=== PATIENT | male | born 1995 | race Caucasian/White ===

== ENCOUNTER 2016-05-15 13:51 | Emergency (ER) | payer OTHER ==
[~2016-05-15] VITALS: Ht 182.9 cm; Wt 70.7 kg
[2016-05-15] MEDS ORDERED: SODIUM CHLORIDE 0.9% 1,000 ML IV ONE (15:08)
[2016-05-15 15:26] LABS: HEMOGLOBIN 15.3 g/dL (13.7-18.0)
[2016-05-15] MEDS ORDERED: KETOROLAC 30 MG/1 ML ONE (15:27)
[2016-05-15] MEDS ORDERED: ONDANSETRON 2MG/ML, 2ML ONE (15:27)
[2016-05-15] MEDS ORDERED: ONDANSETRON 2MG/ML, 2ML IVPush ONE (15:30)
[2016-05-15] MEDS ORDERED: KETOROLAC 30 MG/1 ML IVPush ONE (15:30)
[2016-05-15] MEDS ORDERED: SODIUM CHLORIDE 0.9% 1,000ML IVBOLUS ONE (15:30)
[2016-05-15 15:38] LABS: ASPARTATE AMINO TRANSFERASE 16 U/L (15-37); BLOOD UREA NITROGEN 14 mg/dL (7-18)
[2016-05-15] MEDS ORDERED: SODIUM CHLORIDE FLUSH 10ML SYR IVF ONE (16:30)
[2016-05-15 17:11] VITALS: BP 119/62
== END 2016-05-15 17:14 | disposition home or self-care (01) ==
LOC: ED 15:24
DX: N20.0 Calculus of kidney (principal)
CPT/HCPCS: 36415; 74176; 80053; 85025; 96361; 96374; 96375; 99285; J1885; J2405; J7030

== ENCOUNTER → 2016-05-15 | Outpatient (CLI) | payer OTHER | END | disposition home or self-care (01) | LOC: CFH 10:17 | PROVIDERS: ATTEND Nurse Practitioner Family | DX: R10.9 Unspecified abdominal pain (principal) | CPT/HCPCS: 76700 ==

== ENCOUNTER → 2017-09-21 | Outpatient (CLI) | payer OTHER | END | disposition home or self-care (01) | LOC: CFH 15:57 | PROVIDERS: ATTEND Physician Assistant | DX: M25.561 Pain in right knee (principal) ==